=== PATIENT | female | born 1980 | race Caucasian/White ===

== ENCOUNTER 2020-04-07 05:09 | Observation (INO) | payer OTHER ==
[~2020-04-07] VITALS: Ht 160 cm; Wt 93.4 kg
--- NOTE | ~2020-04-07 | OP ---
[facility] [address] [place] [address] OPERATIVE REPORT Name: BECKYKALI SMITH Room: [address] Danni#: [id number] Admission: 04/07/20 Attend Phys: Jarrod Escobar Discharge: Date of : 78 Report #: [id number] THIS REPORT FOR: //name// cc: MALI - No family physician/PCP MALI Verdin No family physician/PCP ~ CC: [facility] physician/PCP Jarrod Escobar DATE OF SERVICE: 04/08/2020 PREOPERATIVE DIAGNOSIS: Acute cholecystitis. POSTOPERATIVE DIAGNOSIS: Acute cholecystitis. OPERATION: Laparoscopic cholecystectomy with intraoperative cholangiogram. SURGEON: Jarrod Escobar MD ANESTHESIA: General. ESTIMATED BLOOD LOSS: Minimal. SPECIMEN: Gallbladder. DESCRIPTION OF PROCEDURE: After informed consent was obtained, the patient was brought to the operating room and placed supine. SCDs were placed and working, preoperative antibiotics were administered, general anesthesia was induced. The abdomen was prepped and draped in the usual sterile fashion. A 10 mm incision was made above the umbilicus. Fascia was incised and a trocar was placed. Pneumoperitoneum was established. Three right upper quadrant 5 mm ports were placed. Gallbladder was grasped at the fundus and retracted cephalad. Infundibulum was grasped and retracted laterally. I dissected out the cystic duct and cystic artery. Cystic duct was clipped and a ductotomy was made. Cholangiogram catheter was inserted. Catheter was inserted and a cholangiogram was performed. This demonstrated filling of the cystic duct, common bile duct, common hepatic duct, bifurcation of the hepatic ducts, flow into the duodenum. This was normal. Cholangiogram catheter was removed. The cystic duct was clipped and ligated leaving 2 clips on the remaining duct. Gallbladder was then taken off the liver bed with electrocautery after the cystic artery was clipped and ligated with a single clip. Gallbladder and gallstones were placed in an Endopouch and removed. The fascia was then closed with three interrupted 0 Vicryl sutures in [id number] fashion. The skin was closed with 4-0 Monocryl. Incisions were dressed with sterile dressings. COMPLICATIONS: [place] [address] OPERATIVE REPORT Name: KALI PENA Room: [address]#: [id number] Admission: 04/07/20 Attend Phys: Jarrod Escobar Discharge: Date of : 78 Report #: [id number] DISPOSITION: The patient was taken to recovery in satisfactory condition. By: [id number] Escobar MD /krishan
[2020-04-07 05:13] VITALS: BP 146/89
[2020-04-07] MEDS ORDERED: PROZAC10 M1 PO (05:17)
[2020-04-07 05:37] LABS: URINE BLOOD 1+ (Negative); URINE CLARITY CLEAR; URINE COLOR YELLOW; URINE GLUCOSE-RANDOM NEGATIVE (Negative); URINE KETONES 2+ (Negative); URINE LEUKOCYTES-REFLEX NEGATIVE (Negative); URINE NITRITE-REFLEX NEGATIVE (Negative); URINE PROTEIN NEGATIVE (Negative); URINE SPECIFIC GRAVITY >= 1.030 (1.005-1.030); URINE UROBILINOGEN 0.2 E.U./dl (0.2-1.0)
[2020-04-07 05:43] LABS: HEMATOCRIT 43.4 % (37.0-47.0); HEMOGLOBIN 15.1 gm/dL (12.0-15.0); MCH 31.1 pg (26.0-34.0); MCHC 34.7 g/dL (28.0-37.0); MCV 89.4 fL (80.0-100.0); MPV 8.8 fl. (7.2-11.1); NUCLEATED RBCS 0 /100WBC; PLATELET COUNT* 347 thou/uL (150-400); RBC 4.85 mil/uL (4.20-5.00); RDW-CV 13.5 % (10.5-14.5); WBC 15.7 thou/uL (4.0-11.0)
[2020-04-07 05:45] LABS: URINE BILIRUBIN 1+ (Negative)
[2020-04-07 05:49] LABS: BACTERIA-REFLEX >30 Many /HPF (None Seen); CASTS None Seen /LPF (None Seen); MUCUS 4-6 Moderate strn/LPF (None Seen); SQUAMOUS >10 Many /LPF (0-3); TRANSITIONAL EPITHEL CELL 0-3 Few /LPF (None Seen); URINE RBC 3-10 Few /HPF (0-2); URINE WBC-REFLEX None Seen /HPF (0-5)
[2020-04-07 05:50] LABS: CRYSTALS None Seen /LPF (None Seen)
[2020-04-07 05:59] LABS: CALCIUM 9.6 mg/dL (8.5-10.1); CREATININE 0.9 mg/dL (0.6-1.3); POTASSIUM 3.3 mmol/L (3.5-5.1)
[2020-04-07 06:04] LABS: ALBUMIN 3.8 g/dL (3.4-5.0); TOTAL BILIRUBIN 0.6 mg/dL (<0.1-1.0); TOTAL PROTEIN 7.3 g/dL (6.4-8.2)
[2020-04-07] MEDS ORDERED: ZOFRAN ODT4 MG SUBLING (06:50)
[2020-04-07] MEDS ORDERED: NORCO 5-325 TA1 EAC2 PO (06:50)
[2020-04-07 07:17] LABS: ABSOLUTE LYMPHOCYTES 1.7 thou/uL (0.8-5.3); ABSOLUTE MONOCYTES 0.5 thou/uL (0.0-1.2); ABSOLUTE NEUTROPHILS 13.5 thou/uL (1.6-8.1); PLATELET ESTIMATE ADEQUATE
--- NOTE | 2020-04-07 09:41 | EKG ---
[place] [address] ELECTROCARDIOGRAM REPORT Name: KALI PENA Room: [address] M.R.#: [id number] Admission: 04/07/20 Attend Phys: Jarrod Lindsey Discharge: Date of : 78 Date of Service: 04/07/20 0535 Report #: [id number] THIS REPORT FOR: //name// [facility] ED Test Date: 2020-04-07 Test Time: 05:35:15 Pat Name: KALI PENA Department: Room: [facility] Gender: F [employer] T[employer]: [place] : 1980 Requested By: Corky Enrique Order Number: [id number] MD: Eugenio Ann Measurements Intervals [place] Rate: 48 P: 25 MN: 123 QRS: 13 QRSD: 94 T: 16 QT: 427 QTc: 382 Interpretive Statements Sinus bradycardia Baseline wander in lead(s) II,III,aVR,aVL,aVF No previous ECG available for comparison Electronically Signed On 04-07-2020 9:41:22 CDT by Eugenio Ann [email or web address] <ELECTRONICALLY SIGNED> By: Eugenio Ann MD, FAC 04/07/20 0941 0535 0535 Eugenio Ann MD, [facility] /EPI
[2020-04-07 11:06] VITALS: BP 126/78
[2020-04-07 16:00] VITALS: BP 129/79
[2020-04-07 20:19] VITALS: BP 139/86
[2020-04-08 07:15] VITALS: BP 138/86
[2020-04-08 14:19] VITALS: BP 138/86
[2020-04-08 15:02] VITALS: BP 138/86
[2020-04-08 17:56] VITALS: BP 138/86
--- NOTE | 2020-04-11 10:07 | PATH ---
[facility] [address] [place] [address] PATHOLOGY RPT PROCEDURE Name: GUADALUPE JONES Room: [address] Sandee Razo#: [id number] Admission: 04/07/20 Date of : 78 Discharge: 04/08/20 Report #: [id number] Path Case #: [id number] [facility] Accession Number: [id number] . 01 Material submitted: . gallbladder - GALLBLADDER AND CONTENTS . 01 Clinical history: . CHOLECYSTITIS, CHOLELITHIASIS CHOLELITHIASIS WITH ACUTE ABDOMINAL PAIN . 02 Diagnosis: Gallbladder and contents: - Chronic and acute ulcerative cholecystitis and cholelithiasis. (INES/db; 04/10/2020) LBQ 04/10/2020 1555 Local . 02 Electronically signed: . Romario Veloz MD, Pathologist NPI- [id number] . 01 Gross description: . The specimen is received in formalin, labeled "Guadalupe Jones, gallbladder and contents". Received is a previously opened gallbladder measuring 10.5 x 3.6 x 3.5 cm in greatest dimensions displaying a pink-thorpe to adipose covered serosal surface. Opening the specimen reveals a velvety, light brown to arroyo-brown mucosa with a gallbladder wall thickness of 0.2 cm. Calculi are present displaying a green-black, nodular to yellow-thorpe, multifaceted appearance, and no masses or lesions are noted grossly. Slip Feeder sections, to include the proximal margin, are submitted in cassette A1. (CAA; 04/09/2020) QAC/QAC 04/09/2020 1735 Local . 02 Pathologist provided ICD-10: K80.12 . 02 CPT . 716450 Specimen Comment: A courtesy copy of this report has been sent to [phone] Specimen Comment: Report sent to Performed at: [address] [facility] [address], [place], [place] [id number] MD Robel Gomez MD Phone: [phone] Performed at: [address] [facility] [address], [place] [id number] [place] [address] PATHOLOGY RPT PROCEDURE Name: BECKYGUADALUPE Room: [address] MTomásRTomás#: [id number] Admission: 04/07/20 Date of : 78 Discharge: 04/08/20 Report #: [id number] Path Case #: [id number] MD Romario Veloz MD Phone: [phone]
== END 2020-04-08 18:34 | disposition home or self-care (01) ==
LOC: M.ERS 05:09 → M.TBA-ER 08:47 → M.3W 08:47
PROVIDERS: Family Medicine; ADMIT Surgery; ATTEND Surgery
DX: K80.12 Calculus of gallbladder with acute and chronic cholecystitis without obstruction (principal); F41.9 Anxiety disorder, unspecified; F32.9 Major depressive disorder, single episode, unspecified; F17.210 Nicotine dependence, cigarettes, uncomplicated; Z79.899 Other long term (current) drug therapy; Z80.0 Family history of malignant neoplasm of digestive organs